=== PATIENT | male | born 1965 | race Caucasian/White ===

== ENCOUNTER 2016-07-14 12:18 | Emergency (ER) | payer OTHER ==
[2016-07-14 12:27] VITALS: BMI 38.9
[2016-07-14] MEDS ORDERED: SULFAMETHOXAZOLE/TRIMETHOPRIM 800MG/160MG D.S. TABLET PO ONE (16:27)
[2016-07-14] MEDS ORDERED: CEPHALEXIN MONOHYDRATE 500 MG CAPSULE (UD) PO ONE (16:27)
--- NOTE | 2016-07-14 16:27 | PDOC ---
History of Present Illness - General History Source: Patient Exam Limitations: No Limitations - History of Present Illness Initial Comments: 07/14/16 16:41 The patient is a 50 year old male with a significant past medical history of CAD , HTN, hypercholesterolemia, and depression, who presents to the ER with right abscess in the right buttock for 3 weeks. Patient states he was visiting his [place] country[place], where he got a mosquito bite on the right buttock. He states the area got infected and he developed gradually worsening pain since two weeks ago. Patient reports he has tactile fever. He denies paresthesia, active bleeding, numbness, erythema, lightheadedness, chills, nausea, vomiting, or diarrhea. <Alicia Polk - Last Filed: 07/14/16 16:41> <Wendy Sauer - Last Filed: 07/14/16 21:58> - General Chief Complaint: Redness To Affected Area Stated Complaint: INFECTION Time Seen by Provider: 07/14/16 14:21 Past History <Alicia Polk - Last Filed: 07/14/16 16:41> - Past Medical History Cardiac Disorders: Yes (cad ) Diabetes: No Dialysis: No HTN: Yes Hypercholesterolemia: Yes Psychiatric Problems: Yes (anxiety) Suicide Attempt (Hx): No - Surgical History Cardiac Surgery: Yes (QUAD BYPASS) - Family Disease History Family Disease History: Heart Disease: Father - Immunization History Immunization Up to Date: Yes - Psycho/Social/Smoking Cessation Hx Anxiety: No Suicidal Ideation: No Smoking Status: No Smoking History: Never smoked Have you smoked in the past 12 months: No Number of Cigarettes Smoked Daily: 0 Information on smoking cessation initiated: No Hx Alcohol Use: No Drug/Substance Use Hx: No Substance Use Type: None Hx Substance Use Treatment: No <Wendy Sauer - Last Filed: 07/14/16 21:58> - Past Medical History Allergies/Adverse Reactions: Allergies Allergy/AdvReac Type Severity Reaction Status Date / Time No Known Allergies Allergy Verified 07/14/16 12:23 Home Medications: Ambulatory Orders Atorvastatin Ca [Lipitor] 40 mg PO HS 06/18/12 Aspirin [Aspirin EC] 325 mg PO DAILY 10/06/12 Metoprolol Succinate [Toprol XL -] 0 mg PO DAILY 10/06/12 Meclizine HCl [Antivert -] 12.5 mg PO TID #0 tablet 10/08/12 Lorazepam 1 mg PO HS PRN #5 tablet 12/24/14 Sertraline HCl [Zoloft] 0 mg PO DAILY 12/24/14 Cephalexin Monohydrate [Keflex -] 500 mg PO Q6H #40 capsule 07/14/16 Sulfamethoxazole/Trimethoprim [Bactrim Ds -] 1 tab PO BID #20 tablet 07/14/16 Unobtainable 07/14/16 Review of Systems - Review of Systems Able to Perform ROS?: Yes Comments:: GENERAL/CONSTITUTIONAL: No fever or chills. No weakness. HEAD, EYES, EARS, NOSE AND THROAT: No change in vision. No ear pain or discharge. No sore throat. CARDIOVASCULAR: No chest pain or shortness of breath. RESPIRATORY: No cough, wheezing, or hemoptysis. GASTROINTESTINAL: No nausea, vomiting, diarrhea or constipation. GENITOURINARY: No dysuria, frequency, or change in urination. MUSCULOSKELETAL: No joint or muscle swelling or pain. No neck or back pain. SKIN: +Lesion to R buttock. NEUROLOGIC: No headache, vertigo, loss of consciousness, or change in strength/ sensation. ENDOCRINE: No increased thirst. No abnormal weight change. HEMATOLOGIC/LYMPHATIC: No anemia, easy bleeding, or history of blood clots. ALLERGIC/IMMUNOLOGIC: No hives or skin allergy. <Wendy Sauer - Last Filed: 07/14/16 21:58> *Physical Exam - Vital Signs Last Vital Signs Temp Pulse Resp BP Pulse Ox 98.6 F 91 H 18 128/91 100 07/14/16 12:24 07/14/16 12:24 07/14/16 12:24 07/14/16 12:24 07/14/16 12:24 <Alicia Polk - Last Filed: 07/14/16 16:41> - Vital Signs Last Vital Signs Temp Pulse Resp BP Pulse Ox 98.6 F 91 H 18 128/91 100 07/14/16 12:24 07/14/16 12:24 07/14/16 12:24 07/14/16 12:24 07/14/16 12:24 - Physical Exam Comments: GENERAL: Awake, alert, and fully oriented, in no acute distress HEAD: No signs of trauma EYES: PERRLA, EOMI, sclera anicteric, conjunctiva clear ENT: Auricles normal inspection, hearing grossly normal, nares patent, oropharynx clear without exudates. Moist mucosa NECK: Normal ROM, supple, no lymphadenopathy, JVD, or masses LUNGS: Breath sounds equal, clear to auscultation bilaterally. No wheezes, and no crackles HEART: Regular rate and rhythm, normal S1 and S2, no murmurs, rubs or gallops ABDOMEN: Soft, nontender, normoactive bowel sounds. No guarding, no rebound. No masses EXTREMITIES: Normal range of motion, no edema. No clubbing or cyanosis. No cords, erythema, or tenderness NEUROLOGICAL: Cranial nerves II through XII grossly intact. Normal speech, normal gait SKIN: Warm, Dry, normal turgor. +Indurated, erythematous area approximately 6 cm diameter to the R buttock. +Purulent drainage from the center. <Wendy Sauer - Last Filed: 07/14/16 21:58> Procedures - Incision and Drainage I&D Site: Right: Buttock Betadine cleansed: Yes Anesthesia: 1% Lidocaine Volume(ml): 3 Blade Size: 11 Attempts: 1 Iodinated Packin in Complications: none Dressing: Yes Progress: Broke up multiple loculations. Expressed a moderate amount of pus. Wound was cultured. Packing placed, as the wound is significantly indurated, and would benefit from remaining patent. <Wendy Sauer - Last Filed: 07/14/16 21:58> Medical Decision Making - Medical Decision Making 07/14/16 17:04 At time of discharge, patient developed lightheadedness, had a syncopal event with brief LOC. He fell to the floor, first on his back, then hit head. He did not hit his head hard (it was not a hard landing, he slowly crumpled to the floor), and there are no signs of trauma, no swelling. He recovered quickly. He was brought to a stretcher to recline and drink juice, and improved quickly. No indication for advanced imaging at this time. He later stated he has had these symptoms multiple times, is followed by his PMD for it as an outpatient. Stable for discharge at this time. <Wendy Sauer - Last Filed: 07/14/16 21:58> *DC/Admit/Observation/Transfer - Attestations Scribe Attestion: 07/14/16 16:43 Documentation prepared by Alicia Polk, acting as neuropsychology medical consultant for Wendy Sauer MD, /DO. <Alicia Polk - Last Filed: 07/14/16 16:41> - Discharge Dispostion Admit: No <Wendy Sauer - Last Filed: 07/14/16 21:58> Diagnosis at time of Disposition: Skin abscess Qualifiers: Site of cutaneous abscess: buttock Qualified Code(s): L02.31 - Cutaneous abscess of buttock - Discharge Dispostion Disposition: HOME Condition at time of disposition: Stable - Prescriptions Prescriptions: Sulfamethoxazole/Trimethoprim [Bactrim Ds -] 1 tab PO BID #20 tablet Cephalexin Monohydrate [Keflex -] 500 mg PO Q6H #40 capsule - Referrals Referrals: Prince Thomason [Primary Care Provider] - - Patient Instructions Printed Discharge Instructions: DI for Incision and Drainage of a Skin Abscess Additional Instructions: RETURN TO THE ER IN 2 DAYS TO HAVE THE PACKING REMOVED.
[2016-07-14] MEDS ORDERED: IBUPROFEN 600 MG TABLET (FP) PO ONE ×2 (16:29→17:20)
[2016-07-14] MEDS ORDERED: CEPHALEXIN MONOHYDRATE 250 MG CAPSULE (FP) ONE (17:20)
[2016-07-14] MEDS ORDERED: SULFAMETHOXAZOLE/TRIMETHOPRIM 800MG/160MG D.S. TABLET ONE (17:20)
[2016-07-14 17:30] VITALS: BP 151/93; PULSE 79; TEMP 98.4
== END 2016-07-14 16:36 | disposition home or self-care (01) ==
LOC: JER 12:18
PROC: 0J990ZZ Drainage of Buttock Subcutaneous Tissue and Fascia, Open Approach (ICD-10-PCS; principal; 2016-07-14)
DX: L02.31 Cutaneous abscess of buttock (principal); R55 Syncope and collapse
CPT/HCPCS: 10060; 87070; 87186; 87205; 99282-25

== ENCOUNTER 2016-11-01 11:24 | Emergency (ER) | payer OTHER ==
[2016-11-01 11:28] VITALS: BP 133/83; PULSE 60; TEMP 97.6; BMI 35.2
--- NOTE | 2016-11-01 11:57 | PDOC ---
History of Present Illness - General Chief Complaint: Rash Stated Complaint: RASH Time Seen by Provider: 11/01/16 11:51 History Source: Patient Exam Limitations: No Limitations - History of Present Illness Initial Comments: CHIEF COMPLAINT: 51 y/o afebrile male with itchy rash to legs and groin. HISTORY OF PRESENT ILLNESS: The patient states he has gotten this rash on and off for the past 2 years. He states he sits in the grass outside daily to exercise. He states he has had this for the past 2 weeks. He denies new soaps/ dyes/detergents, facial swelling, SOB, difficulty breathing. Vital signs on arrival are within normal limits. REVIEW OF SYSTEMS: GENERAL/CONSTITUTIONAL: No fever/chills. No weakness. No weight change. HEAD, EYES, EARS, NOSE AND THROAT: No change in vision. No ear pain or discharge. No sore throat. CARDIOVASCULAR: No chest pain or shortness of breath. RESPIRATORY: No cough, wheezing, or hemoptysis. SKIN: +itchy rash to legs and groin NEUROLOGIC: No headache, vertigo, loss of consciousness, or loss of sensation. PHYSICAL EXAM: GENERAL: The patient is awake, alert, and fully oriented, in no acute distress. ENT: No angioedema or tongue swelling. LUNGS: CTA EXTREMITIES: Normal range of motion, no edema. NEUROLOGICAL: Normal speech, normal gait. SKIN: 2 hives noted on anterior right quad. 1 hive on right testicle. 1 hive in left inguinal region. Past History - Past Medical History Allergies/Adverse Reactions: Allergies Allergy/AdvReac Type Severity Reaction Status Date / Time No Known Allergies Allergy Verified 11/01/16 11:28 Home Medications: Ambulatory Orders Atorvastatin Ca [Lipitor] 40 mg PO HS 06/18/12 Aspirin [Aspirin EC] 325 mg PO DAILY 10/06/12 Metoprolol Succinate [Toprol XL -] 0 mg PO DAILY 10/06/12 Meclizine HCl [Antivert -] 12.5 mg PO TID #0 tablet 10/08/12 Lorazepam 1 mg PO HS PRN #5 tablet 12/24/14 Sertraline HCl [Zoloft] 0 mg PO DAILY 12/24/14 Cephalexin Monohydrate [Keflex -] 500 mg PO Q6H #40 capsule 07/14/16 Sulfamethoxazole/Trimethoprim [Bactrim Ds -] 1 tab PO BID #20 tablet 07/14/16 Unobtainable 07/14/16 Diphenhydramine [Benadryl 1% Cream -] 1 applic TP BID #1 tube 11/01/16 Cardiac Disorders: Yes (cad ) Diabetes: No Dialysis: No HTN: Yes Hypercholesterolemia: Yes Psychiatric Problems: Yes (anxiety) Suicide Attempt (Hx): No Other medical history: vertigo - Surgical History Cardiac Surgery: Yes (QUAD BYPASS) - Family Disease History Family Disease History: Heart Disease: Father - Immunization History Immunization Up to Date: Yes - Psycho/Social/Smoking Cessation Hx Anxiety: No Suicidal Ideation: No Smoking Status: No Smoking History: Never smoked Have you smoked in the past 12 months: No Number of Cigarettes Smoked Daily: 0 Information on smoking cessation initiated: No Hx Alcohol Use: No Drug/Substance Use Hx: No Substance Use Type: None Hx Substance Use Treatment: No *Physical Exam - Vital Signs Last Vital Signs Temp Pulse Resp BP Pulse Ox 97.6 F 60 18 133/83 98 11/01/16 11:25 11/01/16 11:25 11/01/16 11:25 11/01/16 11:25 11/01/16 11:25 Medical Decision Making - Medical Decision Making A/P: 51 y/o male with scattered hives in inguinal region and right leg. The hives are most likely secondary to patient sitting in the grass to exercise. Will send rx for benadryl cream. Instructed the patient to stop exercising in the grass, and f/u with his doctor in 1 week if no improvement from the cream. Suggested he return to the ER with any worsening or concerning symptoms. The patient verbalizes understanding of all instructions, has no further questions and is awaiting discharge. *DC/Admit/Observation/Transfer Diagnosis at time of Disposition: Hives - Discharge Dispostion Disposition: HOME Condition at time of disposition: Good - Prescriptions Prescriptions: Diphenhydramine [Benadryl 1% Cream -] 1 applic TP BID #1 tube - Referrals Referrals: Prince Thomason [Primary Care Provider] - - Patient Instructions Printed Discharge Instructions: DI for Hives Additional Instructions: Discharge Instructions: -A cream has been sent to your pharmacy to use twice a day -Do not sit in the grass to exercise -If the cream doesn't help after 1 week, please call Dr. Friend for follow up appointment -Return to the ER with any worsening or concerning symptoms
== END 2016-11-01 12:43 | disposition home or self-care (01) ==
LOC: JERFT 11:24
DX: L50.9 Urticaria, unspecified (principal); I25.10 Atherosclerotic heart disease of native coronary artery without angina pectoris; F41.9 Anxiety disorder, unspecified; Z95.1 Presence of aortocoronary bypass graft; I10 Essential (primary) hypertension; E78.00 Pure hypercholesterolemia, unspecified
CPT/HCPCS: 99281-25

== ENCOUNTER 2017-10-26 18:21 | Emergency (ER) | payer OTHER ==
[2017-10-26 18:43] VITALS: BP 130/76; PULSE 72; TEMP 98.7; BMI 40.0
--- NOTE | 2017-10-26 19:27 | PDOC ---
History of Present Illness - General Chief Complaint: Rash Stated Complaint: RASH Time Seen by Provider: 10/26/17 19:09 - History of Present Illness Initial Comments: 52-year-old male with a past medical history significant for hypertension he is not diabetic. Presents for evaluation of 5 days of rash on his scrotum. He has no other associated symptoms no fever chills night sweats nausea vomiting or diarrhea. 10/26/17 19:21 Past History - Past Medical History Allergies/Adverse Reactions: Allergies Allergy/AdvReac Type Severity Reaction Status Date / Time No Known Allergies Allergy Verified 10/26/17 18:40 Home Medications: Ambulatory Orders Atorvastatin Ca [Lipitor] 40 mg PO HS 06/18/12 Aspirin [Aspirin EC] 325 mg PO DAILY 10/06/12 Metoprolol Succinate [Toprol XL -] 0 mg PO DAILY 10/06/12 Meclizine HCl [Antivert -] 12.5 mg PO TID #0 tablet 10/08/12 Lorazepam 1 mg PO HS PRN #5 tablet 12/24/14 Sertraline HCl [Zoloft] 0 mg PO DAILY 12/24/14 Miconazole/Dimethicone/Zinc Ox [Rash Relief Antifungal [place]] 1 inch TP BID #1 tube 10/26/17 Cardiac Disorders: Yes (cad ) COPD: No Diabetes: No Dialysis: No HTN: Yes Hypercholesterolemia: Yes Psychiatric Problems: Yes (anxiety) - Surgical History Cardiac Surgery: Yes (QUAD BYPASS) - Family Disease History Family Disease History: Heart Disease: Father - Immunization History Immunization Up to Date: Yes - Suicide/Smoking/Psychosocial Hx Smoking Status: No Smoking History: Never smoked Have you smoked in the past 12 months: No Number of Cigarettes Smoked Daily: 0 Information on smoking cessation initiated: No Hx Alcohol Use: No Drug/Substance Use Hx: No Substance Use Type: None Hx Substance Use Treatment: No Review of Systems - Review of Systems Integumentary: Yes: See HPI, Pruritus, Rash All Other Systems: Reviewed and Negative *Physical Exam - Vital Signs Last Vital Signs Temp Pulse Resp BP Pulse Ox 98.7 F 72 16 130/76 100 10/26/17 18:40 10/26/17 18:40 10/26/17 18:40 10/26/17 18:40 10/26/17 18:40 - Physical Exam Comments: The scrotum has subcentimeter areas of excoriation with normal surrounding skin color and temperature. There is no evidence of fluctuance the remainder of the peritoneum is normal color and temperature. There are only small excoriations on the scrotum. On the anterior aspect of the scrotum there is some mild induration no erythema or fluctuance sensitivity or pain. There is no inguinal adenopathy. 10/26/17 19:22 Medical Decision Making - Medical Decision Making This rash appears to be fungal. Citlaly's gangrene is an unlikely diagnosis at this point. I will prescribe the antifungal corticosteroid combination and have him follow-up with his PCP. 10/26/17 19:23 *DC/Admit/Observation/Transfer Diagnosis at time of Disposition: Tinea cruris - Discharge Dispostion Disposition: HOME Condition at time of disposition: Stable Decision to Admit order: No - Referrals Referrals: Jarad Casarez MD [Non Staff, Medical] - Vinnie Shultz MD [Non Staff, Medical] - Yusuf Oconnor MD [Non Staff, Medical] - Manuel Worthy MD [Non Staff, Medical] - Rolando Winn [Staff Physician] - Rupali Grimaldo MD [Non Staff, Medical] - Juli Sousa MD [Non Staff, Medical] - Stefania Cooper [Staff Physician] - Kavon Barlow MD [Non Staff, Medical] - - Patient Instructions Printed Discharge Instructions: Tinea Cruris: AKA Jock Itch, Jock Itch Additional Instructions: Please use the prescription cream twice daily to the affected area. Return to the emergency room if your symptoms worsen or go unresolved. In the meantime please follow-up with dermatology in the next 1-2 days for further evaluation and treatment options. - Post Discharge Activity
== END 2017-10-26 19:31 | disposition home or self-care (01) ==
LOC: JERFT 18:21
DX: B35.6 Tinea cruris (principal); I10 Essential (primary) hypertension; E78.00 Pure hypercholesterolemia, unspecified; F41.9 Anxiety disorder, unspecified
CPT/HCPCS: 99281-25

== ENCOUNTER 2023-04-10 11:53 | Emergency (ER) | payer OTHER ==
[2023-04-10] MEDS ORDERED: KETOROLAC TROMETHAMINE 30 MG/1 ML VIAL IM ONE (12:20)
[2023-04-10] MEDS ORDERED: CYCLOBENZAPRINE HCL 10 MG TABLET (FP) PO ONE (12:20)
[2023-04-10] MEDS ORDERED: ACETAMINOPHEN 500 MG TABLET (FP) PO ONE (12:20)
[2023-04-10] MEDS ORDERED: CYCLOBENZAPRINE HCL 10 MG TABLET (FP) ONE (12:29)
[2023-04-10] MEDS ORDERED: KETOROLAC TROMETHAMINE 30 MG/1 ML VIAL ONE (12:29)
[2023-04-10] MEDS ORDERED: ACETAMINOPHEN 500 MG TABLET (FP) ONE (12:30)
[2023-04-10] MEDS ORDERED: LIDOCAINE 4% PATCH TP ONE (13:00)
[2023-04-10 13:22] VITALS: BP 141/75; PULSE 123; RESP 18; TEMP 98.2; BMI 30.7
[2023-04-10] MEDS ORDERED: LIDOCAINE PATCH REMOVAL MC ONE (22:00)
== END 2023-04-10 13:14 | disposition home or self-care (01) ==
LOC: JER 11:53
PROC: 3E0233Z Introduction of Anti-inflammatory into Muscle, Percutaneous Approach (ICD-10-PCS; principal; 2023-04-10)
DX: M54.2 Cervicalgia (principal); M25.512 Pain in left shoulder; S46.912A Strain of unspecified muscle, fascia and tendon at shoulder and upper arm level, left arm, initial encounter; S16.1XXA Strain of muscle, fascia and tendon at neck level, initial encounter; X58.XXXA Exposure to other specified factors, initial encounter
CPT/HCPCS: 93005; 93010; 99284-25